=== PATIENT | female | born 1960 | race Caucasian/White ===

== ENCOUNTER → 2016-12-05 | Outpatient (CLI) | payer OTHER, BC ==
[~2016-12-05] MED LIST: ALDACTONE 25MG25 M1 PO; ASPI325T6 PO; COREG12.5 MG PO; FERROUS SULFATE65 MG PO; IMDUR 30MG30 MG/TAB PO; PLAVIX 75MG TAB75 MG PO; PRAVACHOL 40MG40 MG PO; PRINIVIL2.5 MG PO; PROTONIX 40MG T40 MG PO
== END ==
LOC: COL.RAD 10:30
DX: M18.12 Unilateral primary osteoarthritis of first carpometacarpal joint, left hand (principal)
CPT/HCPCS: J3301; Q9967

== ENCOUNTER → 2017-02-21 | Outpatient (REF) | LOC: ZLAB.WCH 11:17 | DX: Z01.89 Encounter for other specified special examinations (principal) ==